=== PATIENT | male | born 1980 | race Caucasian/White ===

== ENCOUNTER 2021-03-11 10:48 | Emergency (ER) | payer MEDICAID ==
[~2021-03-11] VITALS: Ht 185.4 cm; Wt 122.5 kg
[2021-03-11 10:48] VITALS: BP_SYST 143
[2021-03-11] MEDS ORDERED: ALPRAZolam 0.25 MG TABLET PO ONE (12:30)
[2021-03-11] MEDS ORDERED: ALPR1TAB2 PO (12:46)
[2021-03-11 12:58] VITALS: BP_SYST 143
== END 2021-03-11 12:58 | disposition home or self-care (01) ==
LOC: SED 10:48
DX: F13.20 Sedative, hypnotic or anxiolytic dependence, uncomplicated (principal); F41.9 Anxiety disorder, unspecified; F32.9 Major depressive disorder, single episode, unspecified; Z76.0 Encounter for issue of repeat prescription
CPT/HCPCS: 99283